=== PATIENT | male | born 1955 | race Caucasian/White ===

== ENCOUNTER 2022-02-07 21:32 | Emergency (ER) | payer MEDICARE, SELFPAY ==
[2022-02-07] VITALS (13 sets, daily range): BP systolic 170–189; BP diastolic 83–94; PULSE 74–90; RESP 11–21; O2SAT 94–98
--- NOTE | ~2022-02-07 | CT_ITS ---
EXAMINATION: CTA brain carotid DATE: 02/07/2022 21:45 INDICATION: weakness TECHNIQUE: Computed tomographic angiography (CTA) of the head and neck was performed with 100 mL Omni paque-350 intravenous contrast. Automated exposure control and iterative reconstruction technique wer e employed. The dose-length product was 1277.03 mGy-cm. Maximum intensity projection and volume rende red 3D-reconstructions were created by the technologist on a separate workstation. COMPARISON: CT brain, same date. FINDINGS: CT BRAIN: Severe short segment right M1 stenosis. Relatively decreased vessel caliber and flow in the right MCA territory, when compared to the left. Overall the cerebral vessels are somewhat narrowed in caliber with some intraluminal irregularities. No acute large vessel infarct, intracranial hemorrhage, mass, or hydrocephalus. CTA HEAD: No large vessel occlusion, aneurysm, high flow vascular malformation, nidus or extravasation. CTA NECK: Aortic arch and proximal great vessels: Atherosclerotic calcifications at the visualized aortic arch and proximal great vessels. Right common carotid, carotid bifurcation, and internal carotid artery: Calcified plaque at the bifur cation.There is 0% stenosis of the proximal right internal carotid artery relative to normal distal a rtery lumen diameter (NASCET criteria). Left common carotid, carotid bifurcation, and internal carotid artery: Calcified plaque at the bifurc ation.There is 0% stenosis of the proximal left internal carotid artery relative to normal distal art bela lumen diameter (NASCET criteria). Vertebral arteries: No significant plaque or stenosis. Left vertebral artery is dominant. Other findings: 1.6 cm peripherally enhancing left thyroid nodule. Periodontal disease. IMPRESSION: 1. Severe right M1 segment stenosis. Decreased vessel caliber and flow in the right MCA territory. 2. Diffusely narrowed appearing intracerebral vessels with some intraluminal irregularities, correlat e with history of vasculitis. 3. 1.6 cm left thyroid nodule, consider nonemergent, outpatient thyroid ultrasound for further charac terization. Reviewed, dictated and finalized at location K. ELING AND CUTTING CONTROL CLERK IMPRESSION: 1. Severe right M1 segment stenosis. Decreased vessel caliber and flow in the r ight MCA territory. 2. Diffusely narrowed appearing intracerebral vessels with some intraluminal ir regularities, correlate with history of vasculitis. 3. 1.6 cm left thyroid nodule, consider nonemergent, outpatient thyroid ultraso und for further characterization.
--- NOTE | ~2022-02-07 | XR_ITS ---
EXAMINATION: XR chest 1V portable Exam Date/Time: 02/07/2022 21:50 MEMBERSHIP COORDINATOR HISTORY: stroke symptoms, HX SMOKER Comparison: 06/07/2013. RESULT: Lines, tubes, and devices: Intact sternotomy wires. Mediastinum vascular clips. Lungs and pleura: Scattered mild senescent change. No focal consolidation. Cardiomediastinal silhouette: Stable. Other: No acute osseous or upper abdominal finding. IMPRESSION: No acute cardiopulmonary process. Reviewed, dictated and finalized at location K. ERSHIP COORDINATOR
--- NOTE | ~2022-02-07 | CT_ITS ---
EXAMINATION: CT brain wo con DATE: 02/07/2022 21:40 INDICATION: stroke symptoms . TECHNIQUE: Computed tomography (CT) of the head was performed without intravenous contrast. The mA wa s adjusted according to patient size. Iterative reconstruction technique was employed. The dose-lengt h product was 681.00 mGy-cm. COMPARISON: None FINDINGS: No acute intracranial hemorrhage or extra-axial fluid collection. No hydrocephalus, mass, or herniation. Multifocal areas of cortical hypodensity in the right hemisphere involving the frontal parietal and t emporal lobes. Unremarkable dural venous sinus attenuation. No acute osseous abnormality. Aerated secretions in the maxillary and sphenoid sinuses. The remaining aerated spaces are clear. Mild atrophy and moderate chronic white matter change. Atherosclerotic intracranial calcification. Fo clovis area of encephalomalacia in the right posterior frontal lobe, likely from old infarct. Old left b ivan ganglia lacunar infarct. IMPRESSION: Cortical hypodensities in the right hemisphere suspicious for acute infarct, possibly on a embolic or venous basis. Results reported telephonically to Dr. Thibodeaux by Dr. Sherman at 9:49 PM on 02/07/2022. Reviewed, dictated and finalized at location K. THERAPIST IMPRESSION: Cortical hypodensities in the right hemisphere suspicious for acute infarct, po ssibly on a embolic or venous basis. Results reported telephonically to Dr. Thibodeaux by Dr. Sherman at 9:49 PM on .
--- NOTE | 2022-02-07 21:34 | ECG_ITS ---
Measurements Intervals [place] Rate: 75 P: 49 WV: 163 QRS: -47 QRSD: 111 T: -49 QT: 433 QTc: 485 Interpretive Statements SINUS RHYTHM LEFT ATRIAL ENLARGEMENT [-0.15mV P WAVE IN V1/V2] INCOMPLETE RIGHT BUNDLE BRANCH BLOCK [90+ ms QRS DURATION, TERMINAL R IN V1/V2, 40+ ms S IN I/aVL/V4/V5/V6] LEFT ANTERIOR FASCICULAR BLOCK [QRS AXIS <= -45, QR IN I, RS IN II] POSSIBLE LEFT VENTRICULAR HYPERTROPHY [VOLTAGE CRITERIA PLUS LAE OR QRS WIDENING] NONSPECIFIC T-WAVE ABNORMALITY PROLONGED QT INTERVAL NO PREVIOUS ECG AVAILABLE FOR COMPARISON Electronically Signed On 02-08-2022 15:00:42 JOSS HOUSE KEEPER by Dionte Bryant M.D.
[2022-02-07 21:46] LABS: Estimated Glomerular Filt Rate > 60
[2022-02-07 21:52] LABS: Basophils Absolute Auto 0.1 K/mm3 (0.0-0.1); Basophils Percent Auto 0.8 % (0.2-1.2); Eosinophils Absolute Auto 0.3 K/mm3 (0-0.3); Eosinophils Percent Auto 3.6 % (0-4.4); Hemoglobin 17.8 g/dL (14.0-18.0); Immature Granulocyte Absolute 0.03 K/mm3 (0.00-0.031); Immature Granulocyte Percent A 0.3 % (0-0.5); Lymphocytes Absolute Auto 3.51 K/mm3 (0.9-3.2); Lymphocytes Percent Auto 39.4 % (18.3-44.2); Mean Corpuscular HGB Conc 34.2 g/dl (32-36); Mean Corpuscular Hemoglobin 31.6 pg (26-34); Mean Corpuscular Volume 92.2 fl (80-100); Mean Platelet Volume 9.7 fl (7.4-10.4); Monocytes Absolute Auto 0.8 K/mm3 (0.1-0.6); Monocytes Percent Auto 9.4 % (2.6-8.5); Neutrophils Absolute Auto 4.1 K/mm3 (1.3-6.7); Neutrophils Percent Auto 46.5 % (45.5-73.1); Platelet Count Result 196 k/mm3 (150-375); Red Blood Count 5.64 M/mm3 (4.6-6.20); Red Cell Distribution Width 14.5 % (11.5-14.5); White Blood Count 8.9 K/mm3 (4.5-10.0)
--- NOTE | 2022-02-07 21:59 | ED.NEUROSD ---
HPI - Neuro Symptoms/Deficit General Chief Complaint: Suspected CVA Stated Complaint: Chest Pain Time Seen by Provider: 02/07/22 21:33 History of Present Illness HPI Narrative: Patient is a 67-year-old gentleman who presents to Emergency Department with a chief complaint of strokelike symptoms. Patient reports he has prior history of cardiac disease and had a bypass about 7 years ago the patient currently is not on any medications and today was at a birthday [employer] for himself and had sudden onset of slurred speech and left-sided weakness. The family noticed this and immediately brought the patient to the emergency department for evaluation within 30 minutes the patient's symptoms. Upon arrival to the emergency department patient still has significant left-sided weakness and left-sided facial paralysis patient is able to answer questions. Related Data Allergies Allergy/AdvReac Type Severity Reaction Status Date / Time No Known Allergies Allergy Verified 02/07/22 22:05 Review of Systems Review of Systems: A 10 system review of systems was completed on the patient and is negative except for what is stated in the HPI. Nursing and ancillary documentation was reviewed. PMFSH Comments Prior history of cardiac disease and cardiac bypass Exam Narrative: GENERAL: Well-appearing, well-nourished, and in no acute distress. HEAD: Normocephalic, atraumatic. EYES: PERRLA and EOMI. ENT: Nares clear, no rhinorrhea or epistaxis. Mucous membranes moist. NECK: Supple. CHEST: Clear to auscultation. No respiratory distress. HEART: Regular rate and rhythm. No murmur heard. Normal peripheral pulses. ABDOMEN: Soft, nontender, nondistended, normal active bowel sounds. EXTREMITIES: Left-sided flaccid paralysis of the left upper extremity and left lower extremity. No edema. SKIN: Warm, dry, no rash. NEURO: Left-sided facial droop, left upper extremity and left lower extremity flaccid paralysis. Slight slurred speech. Alert and oriented x3. PSYCH: Normal mood and affect. Course Course Emergency Course: Patient had a NIH stroke scale of 12 primarily due to left-sided weakness and left-sided facial paralysis. CT head showed no evidence of acute hemorrhage. The patient has no absolute contraindications to tPA and was within the window for thrombolytic therapy. The patient was offered thrombolytics as well as this was discussed with the family the family and the patient have opted for thrombolytic therapy. The case was discussed with Dr. Benito of the [facility] stroke service and agreed with the plan to tPA the patient and transfer the patient to [facility] for stroke center care. Vital Signs Vital signs: Vital Signs Pulse Rate 75 02/07/22 22:01 Respiratory Rate 21 H 02/07/22 22:01 Blood Pressure 182/94 H 02/07/22 22:01 Pulse Oximetry 94 02/07/22 22:01 Oxygen Delivery Room Air 02/07/22 22:01 Pulse Rate 76 02/07/22 22:15 Respiratory Rate 21 H 02/07/22 22:01 Blood Pressure 182/94 H 02/07/22 22:15 Pulse Oximetry 94 02/07/22 22:01 Oxygen Delivery Room Air 02/07/22 22:01 Transfer Transfer rationale: Patient was transferred to [facility] stroke [place] after receiving IV thrombolytics Accepting physician: bruno/ alan Transfer comments: Patient was accepted by stroke neurology and transferred to the emergency department at [facility] MDM - Neuro Symptoms/Deficit Lab Data 02/07/22 21:39 02/07/22 21:39 Labs: Lab Results 02/07/22 02/07/22 02/07/22 Range/Units 21:38 21:39 21:39 WBC 8.9 (4.5-10.0) K/mm3 RBC 5.64 (4.6-6.20) M/mm3 Hgb 17.8 (14.0-18.0) g/dL Hct 52.0 (42.0-52.0) % MCV 92.2 (80-100) fl MCH 31.6 (26-34) pg MCHC 34.2 (32-36) g/dl RDW 14.5 (11.5-14.5) % Plt Count 196 (150-375) k/mm3 MPV 9.7 (7.4-10.4) fl Immature Gran % (Auto) 0.3 (0-0.5) % Neut % (Auto) 46.5 (45.5-73.1) % Lymph % (Auto) 39.4 (18.3-44.2) % [place] % (Aut
[2022-02-07 22:02] LABS: INR 1.1; Prothrombin Time 13.4 Seconds (11.1-14.7)
[2022-02-07 22:03] LABS: Partial Thromboplastin Time 26.1 SECONDS (22.3-36.8)
[2022-02-07] MEDS: SODIUM CHLORIDE 0.9% IV 1,000 ML 999 ML IV CONT (22:07)
[2022-02-07 22:08] LABS: Ethanol < 10 mg/dL (<10)
[2022-02-07 22:13] LABS: Alanine Aminotransferase 20 U/L (6-50); Alkaline Phosphatase 93 U/L (38-126); Anion Gap 7 mmol/L (8-16); Aspartate Amino Transferase 29 U/L (17-59); Bilirubin,Total 0.7 mg/dL (0.2-1.3); Blood Urea Nitrogen 22 mg/dL (9-20); Calcium 9.1 mg/dL (8.4-10.2); Carbon Dioxide 26 mmol/L (22-30); Chloride 103 mmol/L (98-107); Estimated CRCL calculation 73 ml/min; Estimated Glomerular Filt Rate > 60; Glucose 107 mg/dL (65-110); Potassium 3.7 mmol/L (3.4-5.0); Sodium 136 mmol/L (137-145)
[2022-02-07 22:18] LABS: Troponin I 0.015 ng/mL (0.000-0.034)
[2022-02-07 22:36] LABS: Albumin Level 4.5 g/dL (3.5-5.1)
[2022-02-07 22:40] LABS: Influenza A QL RT-PCR Negative (Negative); Influenza B QL RT-PCR Negative (Negative); RSV RNA, RT-PCR Negative (Negative); SARS-CoV-2 RNA PCR Negative
[2022-02-07 22:42] LABS: Appearance Urine Clear (Clear); Bilirubin Urine Negative (Negative); Blood Urine Negative (Negative); Color Urine Yellow (Yellow); Glucose Urine UA Negative (Negative); Ketones Urine Negative (Negative); Leukocyte Esterase Ur Negative LEU/UL (Negative); Nitrate Urine Negative (Negative); Protein Urine Negative (Negative); Specific Grav Ur <= 1.005 (1.001-1.035); Urobilinogen Urine 0.2 mg/dL (<2.0); pH Urine 5.5 (5.0-9.0)
[2022-02-07 22:45] LABS: Mucus Urine Rare /lpf; RBC Urine 0-2 /hpf (0-2); WBC Urine 0-3 /hpf
[2022-02-07 22:46] LABS: Add Urine Microscopic? NO
[2022-02-07] MEDS: LABETALOL HCL INJ 100 MG/20 ML VIAL 10 MG IV PUSH (22:52)
[2022-02-07 22:57] LABS: Amphetamine Screen Urine Negative (Negative); Barbiturate Screen Urine Negative (Negative); Benzodiazepines Screen Urine Negative (Negative); Cannabinoid Screen Urine Positive (Negative); Cocaine Screen Urine Negative (Negative); Methadone Screen Urine Negative (Negative); Opiate Screen Urine Negative (Negative); Phencyclidine Screen Urine Negative (Negative)
== END 2022-02-07 23:10 | disposition short-term general hospital (02) ==
PROVIDERS: Emergency Provider Emergency Medicine
DX: I63.9 Cerebral infarction, unspecified (principal); R29.712 NIHSS score 12; Z20.822 Contact with and (suspected) exposure to COVID-19; I51.9 Heart disease, unspecified; Z95.1 Presence of aortocoronary bypass graft; I45.2 Bifascicular block; R94.31 Abnormal electrocardiogram [ECG] [EKG]
CPT/HCPCS: 37195; 70450; 70496; 70498; 71045; 80053; 80307; 81003; 84484; 85025; 85610; 85730; 87637; 93005; 96361; 96374; 99285; J2997; J7030; Q9967

== ENCOUNTER 2023-02-01 08:24 | Outpatient (CLI) | payer MEDICARE, SELFPAY ==
--- NOTE | ~2023-02-01 | US_ITS ---
US art doppler w press LE BI INDICATION: Claudication. Poor bilateral lower extremity pulses. TECHNIQUE: Segmental pressures and plethysmographic and Doppler waveforms of the brachial and lower e xtremity arteries were obtained. COMPARISON: None. FINDINGS: Right and left brachial artery pressures of 140 mm Hg and 126 mm Hg, respectively, are concordant (no rmal difference <= 30 mmHg). The right ankle-brachial index (NIESHA) is 0.59 (normal >= 0.9-1.0). The right great toe-brachial index (TBI) is 0.21 (normal >= 0.60). The left NIESHA is 0.58. The left TBI is 0.21. IMPRESSION: 1. Diminished bilateral ankle and toe brachial indices consistent with moderate peripheral arterial d isease. Reviewed, dictated and finalized at location L. NING FACILITATOR IMPRESSION: 1. Diminished bilateral ankle and toe brachial indices consistent with moderate peripheral arterial disease.
== END 2023-02-01 08:25 | disposition home or self-care (01) ==
PROVIDERS: PCP Family Medicine Adolescent Medicine; Visit Provider Family Medicine Adolescent Medicine
DX: I73.9 Peripheral vascular disease, unspecified (principal)
CPT/HCPCS: 93923